=== PATIENT | male | born 1990 | race Caucasian/White ===

== ENCOUNTER 2020-10-17 22:12 | Emergency (ER) | payer SELFPAY ==
[2020-10-17] MEDS ORDERED: MORPHINE 2 MG/ML SYR ONE (23:53)
[2020-10-17] MEDS ORDERED: ONDANSETRON 4 MG/2 ML VIAL ONE (23:54)
[2020-10-17] MEDS ORDERED: NA CHLORIDE 0.9% 1,000 ML ONE (23:54)
[2020-10-18 00:04] LABS: Basophils % 0.3 % (0-1.3); Hematocrit 43.8 % (39.6-49.0); Lymphocytes % 16.4 % (15.3-44.8); MPV 8.6 fL (7.6-11.3); RBC Red Blood Cell Count 4.83 M/uL (4.33-5.43)
[2020-10-18 00:15] LABS: Albumin 3.8 g/dL (3.4-5.0); Bilirubin Direct 0.1 mg/dL (0-0.2); Bilirubin Total 0.4 mg/dL (0.2-1.0); Potassium 4.3 mmol/L (3.5-5.1); Protein, Total 7.5 g/dL (6.4-8.2)
[2020-10-18] MEDS ORDERED: MORPHINE 2 MG/ML SYR ONE (00:36)
--- NOTE | 2020-10-18 01:40 | ER ---
Nurse's Notes [facility] Name: Quan Al Age: 30 yrs Sex: Male : 1990 Arrival Date: 10/17/2020 Time: 22:16 Bed 7 Private MD: Diagnosis: Diverticulosis of large intestine without perforation or abscess without bleeding Presentation: 10/17 22:42 Chief complaint: Patient states: he has been having RUQ pain for 2 days worse today, bb denies vomiting or diarrhea. Coronavirus screen: At this time, the client does not indicate any symptoms associated with coronavirus-19. Ebola Screen: No symptoms or risks identified at this time. Initial Sepsis Screen: Does the patient meet any 2 criteria? No. Patient's initial sepsis screen is negative. Does the patient have a suspected source of infection? No. Patient's initial sepsis screen is negative. Risk Assessment: Do you want to hurt yourself or someone else? Patient reports no desire to harm self or others. Onset of symptoms was October 16, 2020. 22:42 Method Of Arrival: Ambulatory bb 22:42 Acuity: [place] 3 bb Triage Assessment: 22:44 General: Appears in no apparent distress. uncomfortable, Behavior is calm, cooperative. bb Pain: Complains of pain in abdomen Pain currently is 9 out of 10 on a pain scale. Neuro: Level of Consciousness is awake, alert, obeys commands, Oriented to person, place, time, situation. Cardiovascular: Capillary refill < 3 seconds Patient's skin is warm and dry. Respiratory: Respiratory effort is even, unlabored, Respiratory pattern is regular. GI: Abdomen is non-distended, Reports upper abdominal pain, Patient currently denies diarrhea, vomiting. Derm: Skin is pink, warm \T\ dry. Musculoskeletal: Circulation, motion, and sensation intact. Historical: - Allergies: 22:44 No Known Allergies; bb - Home Meds: 22:44 None [Active]; bb - PMHx: 22:44 None; bb - PSHx: 22:44 None; bb - Immunization history:: Adult Immunizations up to date. - Social history:: Smoking status: Patient reports the use of cigarette tobacco products, cigars, Patient uses alcohol, occasionally. Patient/guardian denies using street drugs. Screenin:44 Abuse screen: Denies threats or abuse. Denies injuries from another. Nutritional ad5 screening: No deficits noted. Tuberculosis screening: No symptoms or risk factors identified. Fall Risk None identified. Assessment: 23:42 General: Appears uncomfortable, Behavior is calm, cooperative, appropriate for age. ad5 Neuro: Level of Consciousness is awake, alert, obeys commands, Oriented to person, place, time, situation, Appropriate for age. Cardiovascular: No deficits noted. Capillary refill < 3 seconds Patient's skin is warm and dry. Respiratory: No deficits noted. Airway is patent Respiratory effort is even, unlabored, Respiratory pattern is regular, symmetrical. GI: Bowel sounds present X 4 quads. Abd is soft X 4 quads Guarding noted in RUQ, epigastric area Reports upper abdominal pain, epigastric pain, nausea, x 3 days. : No deficits noted. No signs and/or symptoms were reported regarding the genitourinary system. Derm: Skin is pink, warm \T\ dry. Musculoskeletal: No deficits noted. 10/18 00:28 Reassessment: Patient appears in no apparent distress at this time. Patient and/or jb4 family updated on plan of care and expected duration. Pain level reassessed. Patient is alert, oriented x 3, equal unlabored respirations, skin warm/dry/pink. 02:14 Reassessment: Patient appears in no apparent distress at this time. Patient and/or jb4 family updated on plan of care and expected duration. Pain level reassessed. Patient is alert, oriented x 3, equal unlabored respirations, skin warm/dry/pink. Vital Signs: 10/17 22:42 BP 132 / 93; Pulse 70; Resp 16 S; Temp 98.8(O); Pulse Ox 99% on R/A; Weight 90.72 kg bb (R); Height 6 ft. 1 in. (185.42 cm) (R); Pain 9/10; 23:42 BP 126 / 91; Pulse 53; Resp 18 S; Pulse Ox 97% on R/A; ad5 10/18 01:45 BP 133 / 92; Pulse 64; Resp 16; Pulse Ox 97% on R/A; jb4 10/17 22:42 Body Mass Index 26.39 (90.72 kg, 185.42 cm) bb ED Course: 10/17 22:16 Patient arrived in ED. wm 22:44 Triage completed. bb 22:44 Arm band placed on Patient placed in waiting room, Patient notified of wait time. bb 22:47 Ankur Muñoz MD is Attending Physician. nanci 22:47 Ankur Anne PA is PHCP. cp 23:26 Eriberto Jesus is Primary Nurse. ad5 23:42 Patient has correct armband on for positive identification. Bed in low position. Call jb4 light in reach. Side rails up X 1. Adult w/ patient. Child being held by parent. 23:42 Initial lab(s) drawn, by me, sent to lab. Inserted saline lock: 20 gauge in right ad5 antecubital area, using aseptic technique. Blood collected. 10/18 00:40 Abdomen In Process Unspecified. EDMS 01:38 Osvaldo Valdes MD is Referral Physician. cp 02:15 No provider procedures requiring assistance completed. IV discontinued, intact, jb4 bleeding controlled, No redness/swelling at site. Pressure dressing applied. Administered Medications: 10/17 23:41 Drug: NS 0.9% 1000 ml Route: IV; Rate: 1 bolus; Site: right antecubital; ad5 10/18 00:58 Follow up: Response: No adverse reaction; IV Status: Completed infusion; IV Intake: jb4 1000ml 10/17 23:41 Drug: morphine 2 mg Route: IVP; Site: right antecubital; ad5 23:41 Drug: Zofran (Ondansetron) 4 mg Route: IVP; Site: right antecubital; ad5 10/18 00:58 Follow up: Response: No adverse reaction; Marked relief of symptoms jb4 00:17 Drug: morphine 2 mg Route: IVP; Site: right antecubital; jb4 00:58 Follow up: Response: No adverse reaction; Marked relief of symptoms; Pain is decreased; jb4 RASS: Alert and Calm (0) 00:57 Drug: NS 0.9% 1000 ml Route: IV; Rate: 1 bolus; Site: right antecubital; jb4 02:13 Follow up: Response: No adverse reaction; IV Status: Completed infusion; IV Intake: jb4 1000ml 01:54 Drug: Cipro (ciprofloxacin) 500 mg Route: PO; jb4 02:13 Follow up: Response: No adverse reaction jb4 01:54 Drug: metroNIDAZOLE 500 mg Route: PO; jb4 02:13 Follow up: Response: No adverse reaction jb4 01:54 Drug: morphine 4 mg Route: IVP; Site: right antecubital; jb4 02:13 Follow up: Response: No adverse reaction; Pain is decreased; RASS: Alert and Calm (0) jb4 Intake: 00:58 IV: 1000ml; Total: 1000ml. jb4 02:13 IV: 1000ml; Total: 2000ml. jb4 Outcome: 01:39 Discharge ordered by . cp 02:15 Discharged to home ambulatory. jb4 02:15 Condition: stable 02:15 Discharge instructions given to patient, Instructed on discharge instructions, follow up and referral plans. medication usage, Demonstrated understanding of instructions, follow-up care, medications, Prescriptions given X 4. 02:16 Patient left the ED. jb4 Signatures: Dispatcher [employer] EDMS Ankur Muñoz MD MD cha Ballard, Brenda, RN RN bb Ankur Anne PA PA cp Bryson, James, RN RN jb4 Eriberto Jesus ad5 Elisabet Jimenes Corrections: (The following items were deleted from the chart) 10/17 23:44 23:42 GI: Bowel sounds present X 4 quads. Abd is soft X 4 quads Guarding noted in RUQ, ad5 epigastric area Reports upper abdominal pain, epigastric pain, nausea, ad5
--- NOTE | 2020-10-18 01:40 | EDPHYS ---
Physician Documentation [facility] Name: Quan Al Age: 30 yrs Sex: Male : 1990 Arrival Date: 10/17/2020 Time: 22:16 Bed 7 Private MD: ED Physician Ankur Muñoz HPI: 10/17 23:10 This 30 yrs old Male presents to ER via Ambulatory with complaints of cp Abdominal Pain - RUQ-3 DAYS. 23:10 The patient presents with abdominal pain in the right upper quadrant. Onset: The cp symptoms/episode began/occurred 2 day(s) ago, and became worse today. The symptoms radiate to mid back and upward between shoulder blades. Associated signs and symptoms: Pertinent negatives: anorexia, blood in stools, chest pain, constipation, diarrhea, fever, palpitations, testicular pain, vomiting. The symptoms are described as sharp, waxing/waning. Severity of pain: in the emergency department the pain is unchanged despite home interventions. Historical: - Allergies: 22:44 No Known Allergies; bb - Home Meds: 22:44 None [Active]; bb - PMHx: 22:44 None; bb - PSHx: 22:44 None; bb - Immunization history:: Adult Immunizations up to date. - Social history:: Smoking status: Patient reports the use of cigarette tobacco products, cigars, Patient uses alcohol, occasionally. Patient/guardian denies using street drugs. ROS: 23:15 Constitutional: Negative for body aches, chills, fever, poor PO intake. cp 23:15 Eyes: Negative for injury, pain, redness, and discharge. cp 23:15 Cardiovascular: Negative for chest pain, edema, palpitations. 23:15 Respiratory: Negative for cough, shortness of breath, wheezing. 23:15 Abdomen/GI: Positive for abdominal pain, Negative for nausea, vomiting, and diarrhea, constipation, anorexia, black/tarry stool, rectal bleeding. 23:15 Back: Positive for radiated pain, of the thoracic area and mid back area. 23:15 Skin: Negative for rash. 23:15 Neuro: Negative for altered mental status, headache, weakness. 23:15 All other systems are negative. Exam: 23:20 Constitutional: The patient appears in no acute distress, alert, awake, cp non-diaphoretic, non-toxic, well developed, well nourished. 23:20 Head/Face: Normocephalic, atraumatic. cp 23:20 Eyes: Periorbital structures: appear normal, Conjunctiva: normal, no exudate, no injection, Sclera: no appreciated abnormality, Lids and lashes: appear normal, bilaterally. 23:20 ENT: External ear(s): are unremarkable, Nose: is normal, Mouth: Lips: moist, Oral mucosa: moist, Posterior pharynx: Airway: no evidence of obstruction, patent. 23:20 Chest/axilla: Inspection: normal, Palpation: is normal, no crepitus, no tenderness. 23:20 Cardiovascular: Rate: normal, Rhythm: regular, Edema: is not appreciated, JVD: is not appreciated. 23:20 Respiratory: the patient does not display signs of respiratory distress, Respirations: normal, no use of accessory muscles, no retractions, labored breathing, is not present, Breath sounds: are clear throughout, no decreased breath sounds, no stridor, no wheezing. 23:20 Abdomen/GI: Inspection: abdomen appears normal, Bowel sounds: active, all quadrants, Palpation: soft, in all quadrants, moderate abdominal tenderness, in the right upper quadrant, rebound tenderness, is not appreciated, involuntary guarding, is not appreciated. 23:20 Back: pain, that is mild, of the mid back area, ROM is normal. 23:20 Skin: no rash present. Vital Signs: 22:42 BP 132 / 93; Pulse 70; Resp 16 S; Temp 98.8(O); Pulse Ox 99% on R/A; Weight 90.72 kg bb (R); Height 6 ft. 1 in. (185.42 cm) (R); Pain 9/10; 23:42 BP 126 / 91; Pulse 53; Resp 18 S; Pulse Ox 97% on R/A; ad5 10/18 01:45 BP 133 / 92; Pulse 64; Resp 16; Pulse Ox 97% on R/A; jb4 10/17 22:42 Body Mass Index 26.39 (90.72 kg, 185.42 cm) bb MDM: 10/17 22:47 Patient medically screened. nanci 23:50 Differential diagnosis: cholecystitis, Cholelithiasis, diverticulitis, gastritis, cp pancreatitis, Peptic Ulcer Disease, Perf. Duodenal Ulcer, Perf. Gastric Ulcer. 10/18 01:39 Data reviewed: vital signs, nurses notes, lab test result(s), radiologic studies, CT cp scan. 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 Response to treatment: the patient's symptoms have markedly improved after treatment, and as a result, I will discharge patient. 02:53 ED course: review of [place] prescription monitor program website show narcotic score cp 100, sedative score 090 and overdose risk score 400. 10/17 23:01 Order name: Basic Metabolic Panel; Complete Time: 00:20 cp 10/18 01:13 Interpretation: Normal except: GLUC 109; CRE 1.56; GFR 52. cp 10/17 23:01 Order name: CBC with Diff; Complete Time: 00:20 cp 10/18 01:13 Interpretation: Normal except: MN% 13.8. cp 10/17 23:01 Order name: Hepatic Function; Complete Time: 00:20 cp 10/17 23:01 Order name: Lipase; Complete Time: 00:20 cp 10/18 00:21 Order name: Abdomen EDMS 10/17 23:01 Order name: IV Saline Lock; Complete Time: 23:41 cp 10/17 23:01 Order name: Labs collected and sent; Complete Time: 00:11 cp 10/18 01:12 Order name: PO challenge; Complete Time: 01:21 cp Administered Medications: 10/17 23:41 Drug: NS 0.9% 1000 ml Route: IV; Rate: 1 bolus; Site: right antecubital; ad5 10/18 00:58 Follow up: Response: No adverse reaction; IV Status: Completed infusion; IV Intake: jb4 1000ml 10/17 23:41 Drug: morphine 2 mg Route: IVP; Site: right antecubital; ad5 23:41 Drug: Zofran (Ondansetron) 4 mg Route: IVP; Site: right antecubital; ad5 10/18 00:58 Follow up: Response: No adverse reaction; Marked relief of symptoms jb4 00:17 Drug: morphine 2 mg Route: IVP; Site: right antecubital; jb4 00:58 Follow up: Response: No adverse reaction; Marked relief of symptoms; Pain is decreased; jb4 RASS: Alert and Calm (0) 00:57 Drug: NS 0.9% 1000 ml Route: IV; Rate: 1 bolus; Site: right antecubital; jb4 02:13 Follow up: Response: No adverse reaction; IV Status: Completed infusion; IV Intake: jb4 1000ml 01:54 Drug: Cipro (ciprofloxacin) 500 mg Route: PO; jb4 02:13 Follow up: Response: No adverse reaction jb4 01:54 Drug: metroNIDAZOLE 500 mg Route: PO; jb4 02:13 Follow up: Response: No adverse reaction jb4 01:54 Drug: morphine 4 mg Route: IVP; Site: right antecubital; jb4 02:13 Follow up: Response: No adverse reaction; Pain is decreased; RASS: Alert and Calm (0) jb4 Disposition: 07:05 Co-signature as Attending Physician, Ankur Muñoz MD I agree with the assessment and nanci plan of care. Disposition Summary: 10/18/20 01:39 Discharge Ordered Location: Home cp Problem: new cp Symptoms: have improved cp Condition: Stable cp Diagnosis - Diverticulosis of large intestine without perforation or abscess without bleeding cp Followup: cp - With: Osvaldo Valdes MD - When: 2 - 3 days - Reason: Recheck today's complaints Discharge Instructions: - Discharge Summary Sheet cp - High-Fiber Diet cp - Diverticulosis cp Forms: - Medication Reconciliation Form cp - Thank You Letter cp - Antibiotic Education cp - Prescription Opioid Use cp - Work release form jb4 Prescriptions: - Zofran 4 mg Oral Tablet - take 1 tablet by ORAL route every 12 hours As needed; 20 tablet; Refills: 0, cp Product Selection Permitted - Cipro 500 mg Oral Tablet - take 1 tablet by ORAL route every 12 hours for 10 days; 20 tablet; Refills: 0, cp Product Selection Permitted - Metronidazole 500 mg Oral Tablet - take 1 tablet by ORAL route every 8 hours; 30 tablet; Refills: 0, Product cp Selection Permitted - Tramadol 50 mg Oral Tablet - take 1 tablet by ORAL route every 8 hours as needed; 12 tablet; Refills: 0, cp Product Selection Permitted Signatures: Dispatcher [employer] EDMS Ankur Muñoz MD MD cha Ballard, Brenda, RN RN bb Ankur Anne PA PA cp Bryson, James, RN RN jb4 Eriberto Jesus Corrections: (The following items were deleted from the chart) 00:21 10/17 23:26 Abdomen Pelvis W [id number] ordered. [facility] 10/18 02:14 10/17 23:01 Urine Dipstick-Ancillary ordered. donna jb4
[2020-10-18] MEDS ORDERED: MORPHINE 4 MG/ML SYR ONE (02:08)
[2020-10-18] MEDS ORDERED: CIPROFLOXACIN HCL 500 MG TAB ONE (02:08)
[2020-10-18] MEDS ORDERED: metroNIDAZOLE 500 MG TABLET ONE (02:09)
[2020-10-18 02:21] VITALS: TEMP 98.8
[2020-10-18 02:23] VITALS: O2SAT 97
[2020-10-18 02:24] VITALS: BP 133/92
--- NOTE | 2020-10-18 16:43 | RAD REPORT ---
EXAM DESCRIPTION: Abdomen Pelvis Wo Contrast 10/18/2020 12:53 AM CDT CLINICAL HISTORY: 30 years, Male, right upper abdomen pain COMPARISON: None. TECHNIQUE: Multiple transaxial tomograms of the abdomen and pelvis were performed from the lung base s to the symphysis pubis 5 mm slice thickness at 5 mm interval reconstruction, without administration of IV and oral contrast. Multiplanar reformats in the sagittal and coronal plane were generated and reviewed. This exam was performed according to our departmental dose-optimization protocol, which includes auto mated exposure control, adjustment of the mA and/or kV according to patient size and/or use of iterat gissel reconstruction technique. FINDINGS: The lack of IV and oral contrast limits evaluation of solid organs, subtle lesions cannot be excluded. The lung bases demonstrate to be clear. Grossly the unopacified liver, gallbladder, pancreas, spleen and adrenal glands demonstrate to be wit hin normal limits, no significant focal lesions were identified. The kidneys demonstrate grossly unremarkable. There is no evidence for nephrolithiasis and/or hydro nephrosis. No focal masses were demonstrated. The ureters displays normal appearance with normal caliber, no hydroureter was seen. Grossly the unopacified stomach and small bowel demonstrate to be within normal limits. There is no e vidence for bowel dilatation/or free air. At the level of the hepatic flexure there is questionable s mall focal area of mucosal thickening posterior aspect of the large bowel with questionable minimal s urrounding pericolonic haziness and reactive mesenteric lymph nodes possibility of very minimal diver ticulitis could be of consideration. This is best demonstrated on axial image [id number] and coronal image 40. The urinary bladder demonstrate to be within normal limits. The prostate gland demonstrate to be unre markable. The aorta demonstrate to be within normal limits. There is no retroperitoneal lymphadenop athy. There is no evidence for ascites. The rest of the soft tissue demonstrate to be grossly unrem arkable. There is a small umbilical hernia containing omentum. IMPRESSION: Questionable small focal area of mucosal thickening posterior aspect of the large bowel hepatic flexure with questionable minimal surrounding pericolonic haziness and reactive mesenteric ly mph nodes possibility of very minimal acute diverticulitis could be of consideration. There is no temo dence for abscess formation and/or perforation. Small umbilical hernia containing omentum. Electronically signed by: Yang Juarez MD 10/18/2020 12:58 AM CDT Due to temporary technical issues with the PACS/Fluency reporting system, reports are being signed by the in house radiologists without review as a courtesy to insure prompt reporting. The interpreting radiologist is fully responsible for the content of the report.
== END 2020-10-18 02:16 | disposition home or self-care (01) ==
LOC: ER 22:12
DX: K57.30 Diverticulosis of large intestine without perforation or abscess without bleeding (principal); F17.210 Nicotine dependence, cigarettes, uncomplicated
CPT/HCPCS: 36415; 74176; 80048; 80076; 83690; 85025; 96361; 96374; 96375; 99284; J2270; J2405; J7030